=== PATIENT | female | born 1960 | race Caucasian/White ===

== ENCOUNTER 2021-05-31 17:35 | Emergency (ER) | payer OTHER, SELFPAY ==
--- NOTE | ~2021-05-31 | XR_ITS ---
EXAMINATION: [id number] INDICATION: Left-sided chest pain TECHNIQUE: A frontal view of the chest and 3 views of the left ribs were obtained. COMPARISON: None. FINDINGS: There is scarring of the lung apices. The lungs are free of acute opacities. There is no pl eural effusion or pneumothorax. The cardiomediastinal silhouette is normal. There are acute, nondispl aced fractures at the lateral aspects of the left fifth and sixth ribs. IMPRESSION: 1. Nondisplaced fractures of the left fifth and sixth ribs. No acute cardiopulmonary abnormality. Reviewed, dictated and finalized at location A. IMPRESSION: 1. Nondisplaced fractures of the left fifth and sixth ribs. No acute cardiopulm onary abnormality.
--- NOTE | ~2021-05-31 | XR_ITS ---
EXAMINATION: XR finger 4th LT min 2V INDICATION: Left fourth finger pain and swelling TECHNIQUE: Four views of the left fourth finger are obtained. COMPARISON: None available FINDINGS: A ring of the fourth finger obscures complete visualization of the fourth proximal phalanx. There appears to be soft tissue swelling distal to the ring. No fracture is identified. IMPRESSION: 1. Soft tissue swelling of the fourth finger without definite osseous abnormality identified. Reviewed, dictated and finalized at location A. IMPRESSION: 1. Soft tissue swelling of the fourth finger without definite osseous abnormali ty identified.
[2021-05-31 17:43] VITALS: BP 107/64; PULSE 69; RESP 16; TEMP 36.4; O2SAT 100
--- NOTE | 2021-05-31 17:45 | ED.UPPEXIN ---
HPI - Extremity Injury (Upper) General Chief Complaint: Extremity Injury, Upper Stated Complaint: lt hand ring finger injury Time Seen by Provider: 05/31/21 17:45 Source: patient and RN notes reviewed Mode of arrival: ambulatory Limitations: no limitations History of Present Illness HPI narrative: 61-year-old female presents to the [facility] with complaint of left ring finger pain and swelling for the last 2-1/2 weeks. Patient states that she fell. Bruising still noted to the PIP joint. Patient also complains of left lateral rib pain after the fall. Has not been seen. No other treatment prior to arrival. No bruising or swelling noted. Related Data Home Medications Medication Instructions Recorded Confirmed buspirone 30 mg PO BID 05/31/21 05/31/21 escitalopram oxalate 10 mg PO DAILY 05/31/21 05/31/21 valacyclovir 500 mg PO USEASDIRECTD 05/31/21 05/31/21 Allergies Allergy/AdvReac Type Severity Reaction Status Date / Time hydromorphone Allergy Unknown VOMITING Verified 05/31/21 17:43 Review of Systems Review of Systems: All systems reviewed & are unremarkable except as noted in HPI and below Constitutional: Constitutional: Reports no additional constitutional complaints, Denies chills and Denies fever(s) Eyes: Eyes: Reports no additional eye complaints Cardiovascular: Cardiovascular: Reports no additional cardiovascular complaints and Denies chest pain Respiratory: Respiratory: Reports no additional respiratory complaints, Denies cough and Denies dyspnea Gastrointestinal: Gastrointestinal: Reports no additional gastrointestinal complaints Musculoskeletal: Musculoskeletal: Reports as per HPI (Left lateral rib pain) and Reports joint swelling (PIP joint left ring finger) Integumentary/Breasts: Skin/Breast: Reports as per HPI Comments: Bruising PIP joint left ring finger Neurologic: Reports system reviewed and no additional complaints, except as documented Psychiatric: Psychiatric: Reports no additional psychiatric complaints Allergic/Immunologic: Allergic/Immunologic: Reports no additional allergic/immunologic complaints [facility] Past Medical History Medical History (Updated 05/31/21 @ 20:00 by Dulce Meyer) Anxiety and depression Social History Social History (Updated 05/31/21 @ 19:58 by Dulce Meyer) Living arrangements: with family Gender identity (if verbalized by the patient): Female Comments At the time of my signature, I reviewed and agree with the nursing past medical, surgical, social, and family history. There is no relevant family history pertinent to the patient complaint. Exam Const: General: healthy appearing, no acute distress and alert Nutritional Appearance: well nourished Orientation/consciousness: patient oriented x3 Limitations: no limitations HENMT: Head: normal to inspection Eyes: Conjunctivae: conjunctivae normal Pupils: Equal, round and reactive pupils present Neck: Neck: normal visual inspection, no lymphadenopathy and no meningeal signs Chest: Chest palpation & inspection: normal inspection of the chest Other: Tenderness left lateral mid ribs Resp: Effort & Inspection: normal respiratory effort Auscultation: clear to auscultation bilaterally Cardio: Rate: regular rate Rhythm: regular rhythm GI: GI Palp: Yes Soft to palpation and No Tenderness to palpation present (GI) : General: Yes no CVA tenderness Back/Spine/Pelvis: Back: no CVA tenderness Skin: General skin exam: normal color Rashes: no rashes Wounds: no wounds Neuro: General: patient oriented x3, moves all extremities, no meningeal signs and no focal motor deficits Speech: normal speech Gait exam (Neuro): Normal gait present Extrem: Other: Left hip joint ring finger, swelling. Patient could not take off rings. Stated that she did not want her rings cut off. Will except an x-ray without taking the rings off Psych: Appearance: grossly normal and well kempt Mental Status: mental status
== END 2021-05-31 19:00 | disposition home or self-care (01) ==
PROVIDERS: Emergency Provider Nurse Practitioner
DX: S22.42XA Multiple fractures of ribs, left side, initial encounter for closed fracture (principal); W19.XXXA Unspecified fall, initial encounter; S60.042A Contusion of left ring finger without damage to nail, initial encounter; F41.9 Anxiety disorder, unspecified; F32.9 Major depressive disorder, single episode, unspecified
CPT/HCPCS: 71101; 73140; 99214; G0463

== ENCOUNTER 2022-04-02 18:38 | Emergency (ER) | payer OTHER, SELFPAY ==
--- NOTE | ~2022-04-02 | XR_ITS ---
EXAM: XR wrist LT min 3V DATE: 04/02/2022 19:04 HISTORY: injury, fall, pain/swelling over navicular . COMPARISON: None available. FINDINGS: Decreased mineralization. No fracture or dislocation. No lytic or blastic lesion. Joint sp aces are maintained. No erosion or periosteal change. Soft tissues within normal limits. IMPRESSION: No acute osseous finding in the left wrist. Reviewed, dictated and finalized at location K.
[2022-04-02 18:46] VITALS: BP 102/73; PULSE 71; RESP 16; TEMP 36.6; O2SAT 100
--- NOTE | 2022-04-02 19:17 | ED.FALL ---
HPI - Fall General Chief Complaint: Fall Stated Complaint: FALL/WRIST/THIGH/RIB PAIN Time Seen by Provider: 04/02/22 19:17 Source: patient, RN notes reviewed and old records reviewed Mode of arrival: ambulatory Limitations: no limitations History of Present Illness HPI Narrative: 62-year-old female who presents to [facility] care with complaints of fall last p.m. on her deck. Patient states pain to the ulnar aspect of her left wrist with some swelling noted increased pain with flexion extension at wrist. Patient reports no LOC at time of fall and did not hit her head when she fell. Patient also has bruised area to left hip upper thigh area where she fell with full ROM of left hip and leg. MD complaint: fall Onset (ago): day(s) (fall occurred last night) Fall from: standing Place fall occurred: home Loss of consciousness: none Related Data Home Medications Medication Instructions Recorded Confirmed buspirone 30 mg tablet 30 mg PO BID 05/31/21 04/02/22 escitalopram oxalate 10 mg tablet 10 mg PO DAILY 05/31/21 04/02/22 Allergies Allergy/AdvReac Type Severity Reaction Status Date / Time hydromorphone Allergy Unknown VOMITING Verified 05/31/21 17:43 Review of Systems Review of Systems: CONSTITUTIONAL: Denies fever, chills, or sweats. EYES: Denies visual changes, redness, or discharge. ENT: Denies rhinorrhea, congestion, sore throat, or otalgia. CARDIOVASCULAR: Denies chest pain, palpitations, or edema. RESPIRATORY: Denies cough or dyspnea. GASTROINTESTINAL: Denies abdominal pain, nausea, vomiting, or diarrhea. GENITOURINARY: Denies dysuria or hematuria. SKIN: Denies rash or itching.bruising to left hip upper thigh area MUSCULOSKELETAL: Denies back pain, positive for pain and some swelling to left wrist joint. or myalgia. NEUROLOGIC: Denies headache, numbness, or weakness. PSYCHIATRIC: Positive for hisoty of anxiety or depression. All systems reviewed & are unremarkable except as noted in HPI and below PMFSH Past Medical History Medical History (Updated 04/04/22 @ 13:18 by Danelle Grossman NP) Anal cancer chemotherapy and radiation Anxiety and depression Malignant melanoma of shoulder left Osteoporosis Social History Social History Gender identity (if verbalized by the patient): Female Comments At time of signature, agree with nursing past medical, surgical, social and family history. There is no relevant family history pertinent to the presenting complaint Exam Narrative: GENERAL: Well-appearing, well-nourished, and in no acute distress. HEAD: Normocephalic, atraumatic. EYES: PERRLA and EOMI. ENT: Nares clear, no rhinorrhea or epistaxis. Mucous membranes moist.TM's normal, throat pink with no lesions or tonsil swelling NECK: Supple.no lymphadenopathy CHEST: Clear to auscultation. No respiratory distress. HEART: Regular rate and rhythm. No murmur heard. Normal peripheral pulses. ABDOMEN: Soft, nontender, nondistended, normal active bowel sounds. EXTREMITIES: Normal range of motion. Mild edema.to left wrist area with pain with flexion and extension of left wrist, circulation and sensation intact to left had and fingers. SKIN: Warm, dry, no rash.bruising to left hip upper thigh area with full ROM of left hip without discomfort NEURO: No focal deficits. Alert and oriented x3. Course Course Level of Care: Express Care Visit Vital Signs Vital signs: Vital Signs Temperature 36.6 C 04/02/22 18:46 Pulse Rate 71 04/02/22 18:46 Respiratory Rate 16 04/02/22 18:46 Blood Pressure 102/73 04/02/22 18:46 Pulse Oximetry 100 04/02/22 18:46 Temperature 36.6 C 04/02/22 18:46 Pulse Rate 71 04/02/22 18:46 Respiratory Rate 16 04/02/22 18:46 Blood Pressure 102/73 04/02/22 18:46 Pulse Oximetry 100 04/02/22 18:46 MDM - Fall Differential Diagnosis Differential diagnosis: Likely fracture of wrist and other (Fall, sprain left wrist ,
== END 2022-04-02 19:50 | disposition home or self-care (01) ==
PROVIDERS: Emergency Provider Registered Nurse
DX: S60.212A Contusion of left wrist, initial encounter (principal); W19.XXXA Unspecified fall, initial encounter; F41.9 Anxiety disorder, unspecified; F32.A Depression, unspecified; M81.0 Age-related osteoporosis without current pathological fracture; Z85.048 Personal history of other malignant neoplasm of rectum, rectosigmoid junction, and anus
CPT/HCPCS: 73110; 99213; G0463

== ENCOUNTER 2023-05-05 17:36 | Emergency (ER) | payer BC, SELFPAY ==
--- NOTE | ~2023-05-05 | XR_ITS ---
EXAMINATION: [id number] Exam Date/Time: 05/05/2023 18:10 CDT HISTORY: fell 3 days ago. pain anterior/lateral left ribs Comparison: 05/31/2021. RESULT: Lines, tubes, and devices: None. Lungs and pleura: Clear. Cardiomediastinal silhouette: Stable. Other: No acute osseous or upper abdominal finding. IMPRESSION: No acute cardiopulmonary process. No acute osseous finding in the left ribs. Reviewed, dictated and finalized at location K.
[2023-05-05 17:52] VITALS: BP 89/69; PULSE 66; RESP 16; TEMP 36.5; O2SAT 99
--- NOTE | 2023-05-05 17:54 | ED.GENADULT ---
HPI - General Adult General Chief complaint: Chest Pain Stated complaint: Pain in left rib Time Seen by Provider: 05/05/23 17:55 Source: patient Mode of arrival: ambulatory Limitations: no limitations History of Present Illness HPI narrative: Patient is a 63-year-old female who presents with left upper rib pain after fall on Friday. Patient denies any bruising but does report pain with deep breaths and palpation. Reports PCP concern for rib fracture. Patient has history of osteoporosis and rib fractures about 2 years ago. Denies any shortness of breath, cough, chest pain, fever, chills. Related Data Home Medications Medication Instructions Recorded Confirmed buspirone 30 mg tablet 30 mg PO BID 05/31/21 05/05/23 escitalopram oxalate 10 mg tablet 10 mg PO DAILY 05/31/21 05/05/23 Allergies Allergy/AdvReac Type Severity Reaction Status Date / Time hydromorphone Allergy Unknown VOMITING Verified 05/05/23 17:51 Review of Systems Review of Systems: All systems reviewed & are unremarkable except as noted in HPI and below Constitutional: Constitutional: Denies body ache(s), Denies chills, Denies fatigue, Denies fever(s), Denies headache(s), Denies malaise and Denies weakness Eyes: Eyes: Denies blurry vision, Denies irritation and Denies loss of vision ENT: Denies otalgia, Denies headache(s), Denies nasal discharge, Denies sinus pain and Denies sore throat Cardiovascular: Cardiovascular: Denies chest pain, Denies irregular heart rhythm and Denies dyspnea Respiratory: Respiratory: Denies dyspnea and Reports other (Rib pain) Gastrointestinal: Gastrointestinal: Denies abdominal pain, Denies melena, Denies hematochezia, Denies diarrhea, Denies nausea and Denies vomiting Musculoskeletal: Musculoskeletal: Denies back pain, Denies myalgias and Denies arthralgias Integumentary/Breasts: Skin/Breast: Denies pruritus and Denies rash Neurologic: Denies headache(s), Denies loss of vision and Denies weakness Psychiatric: Psychiatric: Reports no additional psychiatric complaints Endocrine: Endocrine: Denies fatigue PMFSH Past Medical History Medical History Anal cancer chemotherapy and radiation Anxiety and depression Malignant melanoma of shoulder left Osteoporosis Social History Social History Living arrangements: with family Gender identity (if verbalized by the patient): Female Comments At time of signature, agree with nursing past medical, surgical, social and family history. There is no relevant family history pertinent to the presenting complaint. Exam Const: General: cooperative, healthy appearing, comfortable, no acute distress and well nourished Nutritional Appearance: well nourished Orientation/consciousness: patient oriented x3 Limitations: no limitations HENMT: Head: normal to inspection, normocephalic and atraumatic Ears: hearing grossly normal bilaterally and external ears normal Face/Nose/Sinus: Normal external nose present, normal facial exam and face symmetric Face and sinus: normal facial exam and face symmetric Mouth: Yes lip normal Eyes: General: appearance normal, both eyes and all related structures Alignment and Position: alignment normal and position normal Periorbital: periorbital findings normal Eyelids: eyelids normal Pupils: Equal, round and reactive pupils present EOM: EOMs intact bilaterally Neck: Neck: normal visual inspection, full ROM and supple Chest: Chest palpation & inspection: normal inspection of the chest and tenderness rib left mid-axillary line involving the 5th rib, involving the 6th rib and involving the 7th rib Resp: Effort & Inspection: normal respiratory effort and able to speak in complete sentences Auscultation: clear to auscultation bilaterally, no crackles, no rales, no rhonchi and no wheezes Cardio: Rate: regular rate Rhythm: regular rhythm
== END 2023-05-05 18:56 | disposition home or self-care (01) ==
PROVIDERS: Emergency Provider Nurse Practitioner Family
DX: R07.81 Pleurodynia (principal); Z79.899 Other long term (current) drug therapy; Z85.820 Personal history of malignant melanoma of skin
CPT/HCPCS: 71101; 99213; G0463